=== PATIENT | female | born 1950 | race African-American/Black ===

== ENCOUNTER 2017-06-03 03:12 | Observation (INO) | payer MEDICARE, OTHER ==
[~2017-06-03] VITALS: Ht 149.9 cm; Wt 49.9 kg
[~2017-06-03 03:12] MED LIST: ASPI-1159 PO; HYDR25TA PO
[2017-06-03] MEDS ORDERED: MORPHINE SULFATE 4 MG/ML CPJ (NOT FOR IM USE) IV STA (04:26)
[2017-06-03] MEDS ORDERED: ONDANSETRON HCL 4MG/2ML VIAL IV STA (04:26)
[2017-06-03] MEDS ORDERED: SODIUM CHLORIDE 0.9% 1,000 ML IV ONE (04:26)
[2017-06-03 04:55] LABS: BASOPHILS % 0.5 % (0.0-2.0); EOSINOPHILS % 0.8 % (0.0-5.0); HEMATOCRIT. 39.9 % (36.0-48.0); HEMOGLOBIN. 13.6 g/dL (12.0-16.0); LYMPHOCYTES % 12.4 % (20.0-50.0); MEAN CORPUSCULAR HEMOGLOBIN 31.9 pg (28.0-32.0); MEAN CORPUSCULAR VOLUME 93.9 fL (81.0-99.0); MEAN PLATELET VOLUME 8.9 fl (7.4-10.4); MONOCYTES % 9.4 % (2.0-8.0); NEUTROPHILS % 76.9 % (40.0-76.0); PLATELET 134 x1000/uL (130-400); RED BLOOD CELL COUNT 4.25 mill/uL (4.2-5.4); RED CELL DISTRIBUTION WIDTH 14.1 % (11.6-14.6)
[2017-06-03 05:12] LABS: CHLORIDE 101 mEq/L (98-107)
[2017-06-03] MEDS ORDERED: SODIUM CHLORIDE 0.9% 1,000 ML IV SCH (05:52)
[2017-06-03] MEDS ORDERED: POTASSIUM CHLORIDE 20MEQ TABLET SR PO ONE (06:00)
[2017-06-03 08:06] LABS: CHLORIDE 102 mEq/L (98-107)
[2017-06-03] MEDS ORDERED: LEVOFLOXACIN 500MG PREMIX 100 ML IV ONE (09:10)
[2017-06-03] MEDS: MORPHINE SULFATE 4 MG/ML CPJ (NOT FOR IM USE) IV PRN ×3 (09:55→22:23)
[2017-06-03 10:12] LABS: PHOSPHORUS 3.1 mg/dL (2.5-4.9)
[2017-06-03] MEDS: ENOXAPARIN 40MG/0.4ML SYR SUBCUT SCH (11:00)
[2017-06-03] MEDS ORDERED: DIPHENHYDRAMINE 50MG/ML VIAL IV PRN (14:07)
[2017-06-03] MEDS ORDERED: ACETAMINOPHEN 325MG TABLET PO PRN (14:07)
[2017-06-03] MEDS ORDERED: CLONIDINE 0.1MG TABLET PO PRN (14:07)
[2017-06-03] MEDS ORDERED: DOCUSATE SODIUM 100MG CAPSULE PO PRN (14:08)
[2017-06-03] MEDS ORDERED: NA PHOS,M-B/NA PHOS,DI-BA ENEMA 118ML PR PRN (14:09)
[2017-06-03] MEDS ORDERED: GUAIFENESIN 200MG/10ML SUGAR FREE UDC PO PRN (14:09)
[2017-06-03] MEDS ORDERED: LORAZEPAM 2MG/ML CPJ IV PRN (14:10)
[2017-06-03] MEDS ORDERED: IPRATROPIUM/ALBUTEROL 0.5-3(2.5)MG/3ML NEB INH PRN (14:10)
[2017-06-03] MEDS ORDERED: MAGNESIUM/ALUMINUM HYDROXIDE/SIMETHICONE 30ML UDC PO PRN (14:11)
[2017-06-03] MEDS ORDERED: ONDANSETRON HCL 4MG/2ML VIAL IV PRN (14:11)
[2017-06-03 16:00] VITALS: BP 159/79
[2017-06-03] MEDS: SODIUM CHLORIDE 0.45% 1,000 ML IV SCH (16:00)
[2017-06-03 16:15] VITALS: BP 159/79
[2017-06-03] MEDS ORDERED: CARI350T27 PO (18:38)
[2017-06-03] MEDS ORDERED: ATOR10TA PO (18:38)
[2017-06-03] MEDS ORDERED: POTA20TA82 PO (18:38)
[2017-06-03] MEDS ORDERED: OMEP20CA10 PO (18:38)
[2017-06-03] MEDS ORDERED: AMLO5TAB88 PO (18:40)
[2017-06-03 20:02] VITALS: BP 156/79
[2017-06-03 20:03] LABS: CLARITY URINE CLEAR (CLEAR); COLOR URINE YELLOW (YELLOW); KETONES URINE NEGATIVE (NEGATIVE); LEUKOCYTE ESTERASE URINE TRACE (NEGATIVE); NITRITE URINE NEGATIVE (NEGATIVE); OCCULT BLOOD URINE TRACE (NEGATIVE); PH URINE 5.5 (4.5-8.0); PROTEIN URINE NEGATIVE (NEGATIVE); SPECIFIC GRAVITY URINE 1.014 (1.005-1.030); UROBILINOGEN URINE 0.2 E.U./dL (0.2-1.0)
[2017-06-04] VITALS: BP 150/76
[2017-06-04 04:00] VITALS: BP 148/72
[2017-06-04] MEDS: SODIUM CHLORIDE 0.45% 1,000 ML IV SCH ×2 (05:36→18:21)
[2017-06-04 06:32] LABS: BASOPHILS % 0.7 % (0.0-2.0); HEMATOCRIT. 39.1 % (36.0-48.0); LYMPHOCYTES % 40.6 % (20.0-50.0); MEAN CORPUSCULAR HEMOGLOBIN 31.7 pg (28.0-32.0); MEAN CORPUSCULAR VOLUME 95.2 fL (81.0-99.0); MEAN PLATELET VOLUME 9.3 fl (7.4-10.4); MONOCYTES % 10.2 % (2.0-8.0); NEUTROPHILS % 46.5 % (40.0-76.0); PLATELET 136 x1000/uL (130-400); RED BLOOD CELL COUNT 4.11 mill/uL (4.2-5.4); RED CELL DISTRIBUTION WIDTH 14.2 % (11.6-14.6)
[2017-06-04 07:09] LABS: CHLORIDE 104 mEq/L (98-107)
[2017-06-04 07:10] LABS: HDL CHOLESTEROL 28 mg/dL (40-59); LDL CHOLESTEROL 48 mg/dL (5-100)
[2017-06-04 08:00] VITALS: BP 133/73
[2017-06-04] MEDS: ENOXAPARIN 40MG/0.4ML SYR SUBCUT SCH (09:00)
[2017-06-04] MEDS: LEVOFLOXACIN 250MG PREMIX 50 ML IV SCH (09:11)
[2017-06-04] MEDS: HYDROCODONE/APAP 7.5/325MG 1 TAB TABLET PO PRN ×2 (10:43→20:24)
[2017-06-04] MEDS ORDERED: POTASSIUM CHLORIDE 20MEQ TABLET SR PO NR (11:00)
[2017-06-04 12:00] VITALS: BP 141/86
[2017-06-04] MEDS: MORPHINE SULFATE 4 MG/ML CPJ (NOT FOR IM USE) IV PRN ×2 (13:22→18:22)
[2017-06-04 16:00] VITALS: BP 161/78
[2017-06-05] MEDS: HYDROCODONE/APAP 7.5/325MG 1 TAB TABLET PO PRN (00:15)
[2017-06-05 06:34] LABS: BASOPHILS % 0.4 % (0.0-2.0); EOSINOPHILS % 2.2 % (0.0-5.0); HEMATOCRIT. 38.2 % (36.0-48.0); HEMOGLOBIN. 13.1 g/dL (12.0-16.0); LYMPHOCYTES % 42.3 % (20.0-50.0); MEAN CORPUSCULAR HEMOGLOBIN 32.6 pg (28.0-32.0); MEAN CORPUSCULAR VOLUME 94.8 fL (81.0-99.0); MEAN PLATELET VOLUME 9.4 fl (7.4-10.4); MONOCYTES % 10.1 % (2.0-8.0); PLATELET 133 x1000/uL (130-400); RED BLOOD CELL COUNT 4.03 mill/uL (4.2-5.4); RED CELL DISTRIBUTION WIDTH 14.1 % (11.6-14.6)
[2017-06-05 07:47] LABS: CHLORIDE 102 mEq/L (98-107)
[2017-06-05 08:00] VITALS: BP_SYST 117; BP_DIAS 67; BP_DIAS 87
[2017-06-05] MEDS: SODIUM CHLORIDE 0.45% 1,000 ML IV SCH (08:00)
[2017-06-05] MEDS: ENOXAPARIN 40MG/0.4ML SYR SUBCUT SCH (08:21)
[2017-06-05] MEDS: LEVOFLOXACIN 250MG PREMIX 50 ML IV SCH (08:21)
[2017-06-05 10:24] VITALS: BP 115/80
== END 2017-06-05 11:50 | disposition home or self-care (01) ==
LOC: ER 03:12 → EDBEDREQ 04:35 → 7WST 05:58 → EDBEDREQTM 06:01 → EDBEDREQ 06:01 → ENRESERV 13:23
PROVIDERS: ADMIT Internal Medicine; ATTEND Internal Medicine
DX: N13.2 Hydronephrosis with renal and ureteral calculous obstruction (principal); N39.0 Urinary tract infection, site not specified; E86.0 Dehydration; I10 Essential (primary) hypertension; E87.6 Hypokalemia; G89.29 Other chronic pain; Z79.82 Long term (current) use of aspirin; Z79.899 Other long term (current) drug therapy
CPT/HCPCS: 36415; 74176; 80048; 80053; 80061; 81003; 83690; 83735; 84100; 85025; 96361; 96365; 96366; 96375; 96376; 99285; G0378; J1650; J1956; J2270; J2405; J7030